=== PATIENT | male | born 1990 | race Caucasian/White ===

== ENCOUNTER 2018-10-09 17:45 | Emergency (ER) | payer OTHER, BC ==
[2018-10-09] MEDS ORDERED: Lidocaine 1% 10 ML MDV INJECT ONE (18:42)
--- NOTE | 2018-10-09 19:17 | EDM.PDOC ---
ED HPI GENERAL MEDICAL PROBLEM - General Chief Complaint: Laceration Stated Complaint: LT KNUCKLE AND RT THUMB LAC Time Seen by Provider: 10/09/18 18:40 Source of Information: Reports: Patient History Limitations: Reports: No Limitations - History of Present Illness INITIAL COMMENTS - FREE TEXT/NARRATIVE: The patient presents with a laceration to his right thumb and left hand. 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 He is right handed. His tetanus is up to date. Onset: Sudden Duration: Hour(s): Location: Reports: Upper Extremity, Left (hand), Upper Extremity, Right (thumb) Quality: Reports: Sharp Severity: Mild Improves with: Reports: None Worsens with: Reports: None Associated Symptoms: Reports: No Other Symptoms Bilateral Hand Pain Score (Numeric/FACES): 2 - Related Data Allergies Allergy/AdvReac Type Severity Reaction Status Date / Time No Known Allergies Allergy Verified 05/17/14 19:03 Home Meds: Home Meds Cephalexin [Keflex] 500 mg PO QID #40 capsule 10/09/18 [Rx] Cephalexin [Keflex] 500 mg PO QID #40 capsule 10/09/18 [Rx] Past Medical History - Past Health History Medical/Surgical History: Denies Medical/Surgical History Social & Family History - Tobacco Use Smoking Status *Q: Current Every Day Smoker Years of Tobacco use: 10 Packs/Tins Daily: 1 - Caffeine Use Caffeine Use: Reports: Energy Drinks, Soda - Recreational Drug Use Recreational Drug Use: No ED ROS GENERAL - Review of Systems Review Of Systems: See Below Constitutional: Reports: No Symptoms HEENT: Reports: No Symptoms Respiratory: Reports: No Symptoms Cardiovascular: Reports: No Symptoms Endocrine: Reports: No Symptoms GI/Abdominal: Reports: No Symptoms : Reports: No Symptoms Musculoskeletal: Reports: Other (laceration to the right thumb and left hand) ED EXAM, SKIN/RASH Exam: See Below Exam Limited By: No Limitations General Appearance: Alert, No Apparent Distress Ears: Normal External Exam Nose: Normal Inspection Head: Atraumatic, Normocephalic Neck: Normal Inspection Respiratory/Chest: No Respiratory Distress Extremities: Other (2cm laceration to the left hand on the volar aspect over the 2nd MCP with 1/4 of the extenser tendon being cut. He has good sensation distally and he has good movement and strength with the 2nd finger. He has a superficial 1.5cm laceration to the pad of the right thumb.) ED SKIN PROCEDURES - Laceration/Wound Repair Left Hand Lac/Wound length In cm: 2 Appearance: Subcutaneous, Linear, Moderately Contaminated Distal NVT: Neuro & Vascular Intact, Other (about 1/4 of the extenser tendon was cut) Anesthetic Type: Local Local Anesthesia - Lidocaine (Xylocaine): 1% Plain Local Anesthetic Volume: 3cc Skin Prep: Saline Exploration/Debridement/Repair: Wound Explored, In a Bloodless Field, Explored to Base, Moderate Debridement, Foreign Material Removed Closed with: Sutures Suture Size: 4-0 # of Sutures: 4 Suture Type: Nylon, Interrupted, Simple Repaired with: Vicryl Suture Size: 4-0 # of Sutures: 1 Repaired with: Vicryl Drain Placement: No Tetanus Status Addressed: Yes Complications: No - Splinting Left Upper Extremity Splint Site: Left hand Pre-Procedure NV Status: Normal Post-Procedure NV Status: Normal Splint Material: Fiberglass Splint Design: Volar Applied & Form Fitted By: Provider Provider Post-Splint Application NV Check: NV Status Normal, Good Position Complications: No Course - Vital Signs Last Recorded V/S: Last Vital Signs Temp 99.3 F 10/09/18 18:02 Pulse 90 10/09/18 18:02 Resp 20 10/09/18 18:02 BP 141/91 H 10/09/18 18:02 Pulse Ox 95 10/09/18 18:02 - Orders/Labs/Meds Orders: Active Orders 24 hr Category Date Time Status Hand Comp Min 3V Lt [CR] Stat Exams 10/09/18 19:07 Taken Meds: Medications Discontinued Medications Generic Name Dose Route Start Last Admin Trade Name Freq PRN Reason Stop Dose Admin Lidocaine HCl 10 ml 10/09/18 18:42 10/09/18 18:52 Xylocaine 1% INJECT 10/09/18 18:43 10 ml ONETIME ONE Administration - Re-Assessments/Exams Free Text/Narrative Re-Assessment/Exam: 10/09/18 19:36 I cleaned the wound and anaesthetized it. I debrided the wound and found an extensor tendon laceration. About 1/4 of the extensor tendon was cut. I called Dr Melendez and he was okay with me putting a suture in it and splinting him and have him follow up next Saturday. He also wanted him on keflex. 10/09/18 19:39 I did an x-ray and there was no rodolfo involvement. Departure - Departure Time of Disposition: 19:45 Disposition: Home, Self-Care 01 Condition: Good Clinical Impression: Hand laceration Qualifiers: Encounter type: initial encounter Foreign body presence: with foreign body Laterality: left Qualified Code(s): S61.422A - Laceration with foreign body of left hand, initial encounter Extensor tendon laceration of hand with open wound Qualifiers: Encounter type: initial encounter Laterality: left Qualified Code(s): S66.822A - Laceration of other specified muscles, fascia and tendons at wrist and hand level, left hand, initial encounter; S61.402A - Unspecified open wound of left hand, initial encounter - Discharge Information *PRESCRIPTION DRUG MONITORING PROGRAM REVIEWED*: No *COPY OF PRESCRIPTION DRUG MONITORING REPORT IN PATIENT ULISES: No Prescriptions: Cephalexin [Keflex] 500 mg PO QID #40 capsule Cephalexin [Keflex] 500 mg PO QID #40 capsule Referrals: PCP,None [Primary Care Provider] - Buck Melendez MD [Physician] - 1 Week Forms: ED Department Discharge, ED Return to Work/School Form Additional Instructions: Leave the splint and dressing on for 24 hours and then take it off 2 times per day and wash the wound in warm soapy water. Put antibiotic ointment after cleaning and then splint your hand again. Take the keflex 4 times per day. Take tylenol or motrin for pain. Call Dr Melendez's office tomorrow and make an appointment for Saturday. Please return if you are worse. - My Orders Last 24 Hours: My Active Orders 10/09/18 19:07 Hand Comp Min 3V Lt [CR] Stat - Assessment/Plan Last 24 Hours: My Active Orders 10/09/18 19:07 Hand Comp Min 3V Lt [CR] Stat ED LACERATION/WOUND PROCEDURES - Laceration/Wound Repair Left Hand Laceration/Wound Length In cm: 1.5 Appearance: Superficial Distal NVT: Neuro & Vascular Intact, No Tendon Injury Skin Prep: Saline Wound Exploration, Debridement, Revision: Wound Explored, In a Bloodless Field, Explored to Base Suture Size: other (adhesive)
--- NOTE | 2018-10-10 07:47 | CR ---
Left hand: Four views of the left hand were obtained. Comparison: No prior left hand exam. Joint spaces are preserved. Bony density compatible with ununited ulnar styloid process is incidentally noted. Several sclerotic lesions are seen within the navicular bone most likely due to incidental bone islands. No acute fracture, dislocation or other bony abnormality is seen. No opaque foreign object is seen. Impression: 1. Incidental findings. Nothing acute is appreciated on left hand exam. Diagnostic code #2
== END 2018-10-09 20:05 | disposition home or self-care (01) ==
LOC: JD.ED 17:45
DX: S66.822A Laceration of other specified muscles, fascia and tendons at wrist and hand level, left hand, initial encounter (principal); F17.210 Nicotine dependence, cigarettes, uncomplicated; W31.89XA Contact with other specified machinery, initial encounter
CPT/HCPCS: 12001; 12031; 12032; 12041; 29125; 73130-26-LT; 73130-LT; 99283; 99284-25

== ENCOUNTER 2020-01-12 12:32 | Day surgery (SDC) | payer BC, OTHER ==
[2020-01-12] MEDS ORDERED: Ondansetron 4 MG/2 ML SDV IVPUSH ONE (13:09)
[2020-01-12] MEDS ORDERED: Sodium Chloride 0.9% 10 ML Syringe FLUSH PRN ×2 (13:10→15:01)
[2020-01-12] MEDS ORDERED: Sodium Chloride 0.9% 1,000 ML IV SCH (13:15)
--- NOTE | 2020-01-12 14:41 | EDM.PDOC ---
ED HPI GENERAL MEDICAL PROBLEM - General Chief Complaint: Abdominal Pain Stated Complaint: R SIDE ABDOMINAL PAIN Time Seen by Provider: 01/12/20 13:45 Source of Information: Reports: Patient, RN Notes Reviewed History Limitations: Reports: No Limitations - History of Present Illness INITIAL COMMENTS - FREE TEXT/NARRATIVE: Patient is a 29-year-old male who presents to the ED for the evaluation of right -sided abdominal pain. Patient notes that this did develop yesterday. This is in his right flank/right lower quadrant, mainly. He states it does worsen with movement, the only thing he is really found that makes it feel better is if he sits in a position or has not a lot of pressure put on that side. He is not having any nausea or diarrhea, but did have 1 emesis today. He is not complaining of any dysuria, urinary frequency or urgency. He is not found to have a fever at time of triage, and is not complaining of this at home as well. Patient states that the pain is a stabbing sharp pain. He has not had any abdominal surgeries prior to this. He did not take any sort of ibuprofen or Tylenol at home. He does not have a regular doctor, he takes no regular medications, and relates no past medical history. He is a smoker, 1 pack/day for the last 10 years. Patient states he has not eaten any solid food since yesterday. Right Abdominal Pain Score (Numeric/FACES): 3 - Related Data Allergies Allergy/AdvReac Type Severity Reaction Status Date / Time No Known Allergies Allergy Verified 01/12/20 12:41 Home Meds: Home Meds . [No Known Home Meds] 01/12/20 [History] Past Medical History - Past Health History Medical/Surgical History: Denies Medical/Surgical History Social & Family History - Tobacco Use Smoking Status *Q: Current Every Day Smoker Years of Tobacco use: 10 Packs/Tins Daily: 1 - Caffeine Use Caffeine Use: Reports: Energy Drinks, Soda ED ROS GENERAL - Review of Systems Review Of Systems: See Below Constitutional: Reports: Decreased Appetite. Denies: Fever, Chills Respiratory: Denies: Shortness of Breath, Cough Cardiovascular: Denies: Chest Pain GI/Abdominal: Reports: Abdominal Pain (RLQ), Decreased Appetite, Vomiting. Denies: Constipation, Diarrhea, Nausea : Denies: Dysuria, Frequency, Hematuria, Urgency Musculoskeletal: Denies: Back Pain ED EXAM, GI/ABD - Physical Exam Exam: See Below Exam Limited By: No Limitations General Appearance: Alert, WD/WN, No Apparent Distress Eyes: Bilateral: Normal Appearance Throat/Mouth: Normal Inspection, Normal Lips, Normal Teeth, Normal Gums, Normal Oropharynx, Normal Voice, No Airway Compromise Head: Atraumatic, Normocephalic Neck: Normal Inspection Respiratory/Chest: No Respiratory Distress, Lungs Clear, Normal Breath Sounds, No Accessory Muscle Use, Chest Non-Tender Cardiovascular: Normal Peripheral Pulses, Regular Rate, Rhythm, No Edema, No Murmur GI/Abdominal Exam: Normal Bowel Sounds, Soft, No Distention, No Mass, Rebound ( RLQ), Tender (RLQ). No: Rigid Extremities: Normal Inspection, Normal Capillary Refill Neurological: Alert, Oriented, Normal Cognition, No Motor/Sensory Deficits Psychiatric: Normal Affect, Normal Mood Skin Exam: Warm, Dry, Intact, Normal Color, No Rash Course - Vital Signs Last Recorded V/S: Last Vital Signs Temp 98.2 F 01/12/20 12:39 Pulse 79 01/12/20 12:39 Resp 16 01/12/20 12:39 BP 141/78 H 01/12/20 12:39 Pulse Ox 98 01/12/20 12:39 - Orders/Labs/Meds Orders: Active Orders 24 hr Category Date Time Status Notify Provider Consults [RC] ASDIRECTED Care 01/12/20 15:52 Ordered Peripheral IV Care [RC] . DIRECTED Care 01/12/20 13:10 Active Consult to Physician [CONS] Stat Cons 01/12/20 15:51 Ordered UA W/MICROSCOPIC [URIN] Stat Lab 01/12/20 13:09 Ordered Sodium Chloride 0.9% [Normal Saline] 1,000 ml Med 01/12/20 13:15 Active IV ASDIRECTED Sodium Chloride 0.9% [Saline Flush] Med 01/12/20 13:10 Active 10 ml FLUSH ASDIRECTED PRN Sodium Chloride 0.9% [Saline Flush] Med 01/12/20 15:01 Active 10 ml FLUSH ONETIME PRN Peripheral IV Insertion Adult [OM.PC] Stat Oth 01/12/20 13:10 Ordered Medication Orders Sodium Chloride (Normal Saline) 1,000 mls @ 999 mls/hr IV ASDIRECTED NEELIMA Last Admin: 01/12/20 13:26 Dose: 999 mls/hr Sodium Chloride (Saline Flush) 10 ml FLUSH ASDIRECTED PRN PRN Reason: Keep Vein Open Last Admin: 01/12/20 13:25 Dose: 10 ml Sodium Chloride (Saline Flush) 10 ml FLUSH ONETIME PRN PRN Reason: Keep Vein Open Last Admin: 01/12/20 15:21 Dose: 10 ml Labs: Laboratory Tests 01/12/20 01/12/20 Range/Units 13:25 13:25 WBC 10.86 H (4.23-9.07) K/mm3 RBC 5.61 (4.63-6.08) M/mm3 Hgb 17.1 (13.7-17.5) gm/dl Hct 49.8 (40.1-51.0) % MCV 88.8 (79.0-92.2) fl MCH 30.5 (25.7-32.2) pg MCHC 34.3 (32.2-35.5) g/dl RDW Std Deviation 44.0 H (35.1-43.9) fL Plt Count 199 (163-337) K/mm3 MPV 10.8 (9.4-12.3) fl Neutrophils % (Manual) 73 H (40-60) % Band Neutrophils % 0 (0-10) % Lymphocytes % (Manual) 19 L (20-40) % Atypical Lymphs % 0 % Monocytes % (Manual) 7 (2-10) % Eosinophils % (Manual) 1 (0.8-7.0) % Basophils % (Manual) 0 L (0.2-1.2) Platelet Estimate Adequate RBC Morph Comment Normal Sodium 141 (136-145) mEq/L Potassium 4.0 (3.5-5.1) mEq/L Chloride 104 (98-107) mEq/L Carbon Dioxide 27 (21-32) mEq/L Anion Gap 14.0 (5-15) BUN 16 (7-18) mg/dL Creatinine 1.1 (0.7-1.3) mg/dL Est Cr Clr Drug Dosing 102.31 mL/min Estimated GFR (MDRD) > 60 (>60) mL/min BUN/Creatinine Ratio 14.5 (14-18) Glucose 91 (74-106) mg/dL Calcium 9.6 (8.5-10.1) mg/dL Total Bilirubin 0.7 (0.2-1.0) mg/dL AST 11 L (15-37) U/L ALT 24 (16-63) U/L Alkaline Phosphatase 87 (46-116) U/L C-Reactive Protein 9.8 H* (<1.0) mg/dL Total Protein 8.0 (6.4-8.2) g/dl Albumin 4.2 (3.4-5.0) g/dl Globulin 3.8 gm/dL Albumin/Globulin Ratio 1.1 (1-2) Meds: Medications Generic Name Dose Route Start Last Admin Trade Name Freq PRN Reason Stop Dose Admin Sodium Chloride 1,000 mls @ 999 mls/hr 01/12/20 13:15 01/12/20 13:26 Normal Saline IV 999 mls/hr ASDIRECTED NEELIMA Administration Sodium Chloride 10 ml 01/12/20 13:10 01/12/20 13:25 Saline Flush FLUSH 10 ml ASDIRECTED PRN Administration Keep Vein Open Sodium Chloride 10 ml 01/12/20 15:01 01/12/20 15:21 Saline Flush FLUSH 10 ml ONETIME PRN Administration Keep Vein Open Discontinued Medications Generic Name Dose Route Start Last Admin Trade Name Freq PRN Reason Stop Dose Admin Diatrizoate Meglum/Diatrizoate Sod 60 ml 01/12/20 15:01 01/12/20 15:20 Gastrografin 37% PO 01/12/20 15:02 60 ml ONETIME ONE Administration Iopamidol 100 ml 01/12/20 15:01 01/12/20 15:20 Isovue-300 (61%) IVPUSH 01/12/20 15:02 100 ml ONETIME ONE Administration Ondansetron HCl 4 mg 01/12/20 13:09 01/12/20 13:25 Zofran IVPUSH 01/12/20 13:10 4 mg ONETIME ONE Administration - Re-Assessments/Exams Free Text/Narrative Re-Assessment/Exam: 01/12/20 14:42 Patient presents to the ED for his right lower abdominal pain. I did order some labs to include CBC, CMP, CRP, urinalysis, also 4 mg Zofran with an abdomen pelvis CT with oral and IV contrast for further evaluation. Patient's white blood cell count is mildly elevated at 10.86, 73% neutrophils no bands. Metabolic panel is essentially within normal limits, CRP is elevated at 9.8 today. Departure - Departure Time of Disposition: 15:55 Disposition: DC/Tfer to Acute Hospital 02 Condition: Fair Clinical Impression: Appendicitis Qualifiers: Appendicitis type: acute appendicitis Acute appendicitis type: with localized peritonitis Appendicitis gangrene presence: without gangrene Appendicitis perforation presence: without perforation Appendicitis abscess presence: without abscess Qualified Code(s): K35.30 - Acute appendicitis with localized peritonitis, without perforation or gangrene - Discharge Information *PRESCRIPTION DRUG MONITORING PROGRAM REVIEWED*: No *COPY OF PRESCRIPTION DRUG MONITORING REPORT IN PATIENT ULISES: No Referrals: PCP,None [Primary Care Provider] - Forms: ED Department Discharge Sepsis Event Note - Evaluation Sepsis Screening Result: No Definite Risk - Focused Exam Vital Signs: Vital Signs Temp Pulse Resp BP Pulse Ox 01/12/20 12:39 98.2 F 79 16 141/78 H 98 Date Exam was Performed: 01/12/20 Time Exam was Performed: 15:55 - My Orders Last 24 Hours: My Active Orders 01/12/20 13:09 UA W/MICROSCOPIC [URIN] Stat 01/12/20 13:10 Peripheral IV Care [RC] . DIRECTED Sodium Chloride 0.9% [Saline Flush] 10 ml FLUSH ASDIRECTED PRN Peripheral IV Insertion Adult [OM.PC] Stat 01/12/20 13:15 Sodium Chloride 0.9% [Normal Saline] 1,000 ml IV ASDIRECTED 01/12/20 15:01 Sodium Chloride 0.9% [Saline Flush] 10 ml FLUSH ONETIME PRN 01/12/20 15:51 Consult to Physician [CONS] Stat 01/12/20 15:52 Notify Provider Consults [RC] ASDIRECTED - Assessment/Plan Last 24 Hours: My Active Orders 01/12/20 13:09 UA W/MICROSCOPIC [URIN] Stat 01/12/20 13:10 Peripheral IV Care [RC] . DIRECTED Sodium Chloride 0.9% [Saline Flush] 10 ml FLUSH ASDIRECTED PRN Peripheral IV Insertion Adult [OM.PC] Stat 01/12/20 13:15 Sodium Chloride 0.9% [Normal Saline] 1,000 ml IV ASDIRECTED 01/12/20 15:01 Sodium Chloride 0.9% [Saline Flush] 10 ml FLUSH ONETIME PRN 01/12/20 15:51 Consult to Physician [CONS] Stat 01/12/20 15:52 Notify Provider Consults [RC] ASDIRECTED
[2020-01-12] MEDS ORDERED: Diatrizoate Meglumine/Diatrizoate Sodium 37% 120 ML Bottle PO ONE (15:01)
[2020-01-12] MEDS ORDERED: Iopamidol 612 MG/ML 100 ML Bottle IVPUSH ONE (15:01)
--- NOTE | 2020-01-12 15:48 | CT ---
CT abdomen and pelvis Technique: Multiple axial sections were obtained from above the dome of the diaphragm inferiorly through the pubic symphysis. Intravenous contrast and oral contrast was utilized. Findings: Appendix is dilated and shows surrounding inflammatory change. Findings 7th are compatible with appendicitis. Visualized lung bases shows minimal atelectasis. Liver shows no focal abnormality. Spleen shows no focal abnormality. Adrenal glands show no nodule. Pancreas shows no focal abnormality. Aorta shows no aneurysm. Kidneys show symmetric contrast enhancement without hydronephrosis or mass. No mesenteric abnormalities are seen. No pelvic mass or other abnormality is seen. Bone window settings were reviewed which shows no acute osseous finding. Impression: 1. Dilated appendix with surrounding inflammatory change compatible with appendicitis. 2. Mild bibasilar atelectasis within both lung bases. 3. No additional abnormality is seen. Diagnostic code #5 This report was dictated in [place] Standard Time
[2020-01-12] MEDS ORDERED: cefOXitin 1 GM in Premix Bag 1 BAG IV ONE ×2 (16:27→16:57)
[2020-01-12] MEDS ORDERED: Bupivacaine 0.5%/EPINEPHrine 1:200,000 50 ML MDV ONE (16:28)
--- NOTE | 2020-01-12 16:35 | PCM.HP.2 ---
H&P History of Present Illness - General Date of Service: 01/12/20 Source of Information: Patient History Limitations: Reports: No Limitations - History of Present Illness Duration of Symptoms: Reports: Day(s):, Getting Worse Location: Reports: Abdomen Severity: Severe Associated Symptoms: Reports: Nausea/Vomiting Other HPI/Comments: Mr. Kilpatrick is a 29 yo man without medical problems who presents with about 24 hours of abdominal pain. He has not had pain like this before. The pain is localized in the right lower quadrant and has been getting worse. He has associated nausea and vomiting. CT scan shows evidence of acute appendicitis. Right Abdominal Pain Score (Numeric/FACES): 3 - Related Data Allergies/Adverse Reactions: Allergies Allergy/AdvReac Type Severity Reaction Status Date / Time No Known Allergies Allergy Verified 01/12/20 12:41 Home Medications: Home Meds . [No Known Home Meds] 01/12/20 [History] Past Medical History - Past Health History Medical/Surgical History: Denies Medical/Surgical History Social & Family History - Tobacco Use Smoking Status *Q: Current Every Day Smoker Years of Tobacco use: 10 Packs/Tins Daily: 1 - Caffeine Use Caffeine Use: Reports: Energy Drinks, Soda H&P Review of Systems - Review of Systems: Review Of Systems: See Below General: Reports: No Symptoms HEENT: Reports: No Symptoms Pulmonary: Reports: No Symptoms Cardiovascular: Reports: No Symptoms Gastrointestinal: Reports: Abdominal Pain, Anorexia, Nausea, Vomiting Genitourinary: Reports: No Symptoms Musculoskeletal: Reports: No Symptoms Skin: Reports: No Symptoms Psychiatric: Reports: No Symptoms Neurological: Reports: No Symptoms Hematologic/Lymphatic: Reports: No Symptoms Immunologic: Reports: No Symptoms Exam - Exam Exam: See Below - Vital Signs Vital Signs: Last Vital Signs Temp 36.8 C 01/12/20 12:39 Pulse 79 01/12/20 12:39 Resp 16 01/12/20 12:39 BP 141/78 H 01/12/20 12:39 Pulse Ox 98 01/12/20 12:39 Weight: 86.183 kg - Exam General: Alert, Oriented, Cooperative HEENT: Conjunctiva Clear Neck: Supple Lungs: Clear to Auscultation Cardiovascular: Regular Rate GI/Abdominal Exam: Other (focal tenderness at McBurney point. No peritonitis or palpable mass. ) Extremities: Normal Inspection Skin: Warm, Dry, Intact Neuro Extensive - Mental Status: Alert, Oriented x3 Psychiatric: Normal Affect - Patient Data Lab Results Last 24 hrs: Laboratory Results - last 24 hr 01/12/20 01/12/20 Range/Units 13:25 13:25 WBC 10.86 H (4.23-9.07) K/mm3 RBC 5.61 (4.63-6.08) M/mm3 Hgb 17.1 (13.7-17.5) gm/dl Hct 49.8 (40.1-51.0) % MCV 88.8 (79.0-92.2) fl MCH 30.5 (25.7-32.2) pg MCHC 34.3 (32.2-35.5) g/dl RDW Std Deviation 44.0 H (35.1-43.9) fL Plt Count 199 (163-337) K/mm3 MPV 10.8 (9.4-12.3) fl Neutrophils % (Manual) 73 H (40-60) % Band Neutrophils % 0 (0-10) % Lymphocytes % (Manual) 19 L (20-40) % Atypical Lymphs % 0 % Monocytes % (Manual) 7 (2-10) % Eosinophils % (Manual) 1 (0.8-7.0) % Basophils % (Manual) 0 L (0.2-1.2) Platelet Estimate Adequate RBC Morph Comment Normal Sodium 141 (136-145) mEq/L Potassium 4.0 (3.5-5.1) mEq/L Chloride 104 (98-107) mEq/L Carbon Dioxide 27 (21-32) mEq/L Anion Gap 14.0 (5-15) BUN 16 (7-18) mg/dL Creatinine 1.1 (0.7-1.3) mg/dL Est Cr Clr Drug Dosing 102.31 mL/min Estimated GFR (MDRD) > 60 (>60) mL/min BUN/Creatinine Ratio 14.5 (14-18) Glucose 91 (74-106) mg/dL Calcium 9.6 (8.5-10.1) mg/dL Total Bilirubin 0.7 (0.2-1.0) mg/dL AST 11 L (15-37) U/L ALT 24 (16-63) U/L Alkaline Phosphatase 87 (46-116) U/L C-Reactive Protein 9.8 H* (<1.0) mg/dL Total Protein 8.0 (6.4-8.2) g/dl Albumin 4.2 (3.4-5.0) g/dl Globulin 3.8 gm/dL Albumin/Globulin Ratio 1.1 (1-2) Result Diagrams: 01/12/20 13:25 01/12/20 13:25 Sepsis Event Note - Evaluation Sepsis Screening Result: No Definite Risk - Focused Exam Vital Signs: Vital Signs Temp Pulse Resp BP Pulse Ox 01/12/20 12:39 36.8 C 79 16 141/78 H 98 Date Exam was Performed: 01/12/20 Time Exam was Performed: 16:32 *Q Meaningful Use (ADM) - VTE Risk Assess *Q Each Risk Factor Represents 1 Point: Minor Surgery Planned Total Score 1 Point Risk Factors: 1 Problem List Initiated/Reviewed/Updated: Yes Orders Last 24hrs: Active Orders 24 hr Category Date Time Status Notify Provider Consults [RC] ASDIRECTED Care 01/12/20 15:52 Active Peripheral IV Care [RC] . DIRECTED Care 01/12/20 13:10 Active Consult to Physician [CONS] Stat Cons 01/12/20 15:51 Active UA W/MICROSCOPIC [URIN] Stat Lab 01/12/20 13:09 Ordered Sodium Chloride 0.9% [Normal Saline] 1,000 ml Med 01/12/20 13:15 Active IV ASDIRECTED Sodium Chloride 0.9% [Saline Flush] Med 01/12/20 13:10 Active 10 ml FLUSH ASDIRECTED PRN Sodium Chloride 0.9% [Saline Flush] Med 01/12/20 15:01 Active 10 ml FLUSH ONETIME PRN cefOXitin [Mefoxin in Dextrose,Iso-Osm 1 GM/50 ML] 1 gm Med 01/12/20 16:27 Ordered Premix Bag 1 bag IV ONETIME Peripheral IV Insertion Adult [OM.PC] Stat Oth 01/12/20 13:10 Ordered Schedule Procedure [COMM] Routine Oth 01/12/20 16:27 Ordered Medication Orders Sodium Chloride (Normal Saline) 1,000 mls @ 999 mls/hr IV ASDIRECTED NEELIMA Last Admin: 01/12/20 13:26 Dose: 999 mls/hr Cefoxitin Sodium 1 gm/ Premix 50 mls @ 100 mls/hr IV ONETIME ONE Stop: 01/12/20 16:56 Sodium Chloride (Saline Flush) 10 ml FLUSH ASDIRECTED PRN PRN Reason: Keep Vein Open Last Admin: 01/12/20 13:25 Dose: 10 ml Sodium Chloride (Saline Flush) 10 ml FLUSH ONETIME PRN PRN Reason: Keep Vein Open Last Admin: 01/12/20 15:21 Dose: 10 ml Assessment/Plan Comment:: acute appendicitis. Plan for laparoscopic appendectomy. - Mortality Measure Prognosis:: Good
--- NOTE | 2020-01-12 16:38 | PCM.PREANE ---
Preanesthetic Assessment - Anesthesia/Transfusion/Family Hx Anesthesia History: Prior Anesthesia Without Reaction Transfusion History: No Prior Transfusion(s) - Review of Systems General: No Symptoms Pulmonary: No Symptoms Cardiovascular: No Symptoms Gastrointestinal: No Symptoms Neurological: No Symptoms Other: Reports: None - Physical Assessment NPO Status Date: 01/12/20 NPO Status Time: 07:00 Vital Signs: Last Vital Signs Temp 98.2 F 01/12/20 12:39 Pulse 79 01/12/20 12:39 Resp 16 01/12/20 12:39 BP 141/78 H 01/12/20 12:39 Pulse Ox 98 01/12/20 12:39 Height: 1.78 m Weight: 86.183 kg ASA Class: 2E Mental Status: Alert & Oriented x3 Airway Class: Mallampati = 3 Dentition: Reports: Normal Dentition Thyro-Mental Finger Breadths: 3 Mouth Opening Finger Breadths: 3 ROM/Head Extension: Full Lungs: Clear to Auscultation, Normal Respiratory Effort Cardiovascular: Regular Rate, Regular Rhythm - Lab Values: Laboratory Last Values WBC 10.86 K/mm3 (4.23-9.07) H 01/12/20 13:25 RBC 5.61 M/mm3 (4.63-6.08) 01/12/20 13:25 Hgb 17.1 gm/dl (13.7-17.5) 01/12/20 13:25 Hct 49.8 % (40.1-51.0) 01/12/20 13:25 MCV 88.8 fl (79.0-92.2) 01/12/20 13:25 MCH 30.5 pg (25.7-32.2) 01/12/20 13:25 MCHC 34.3 g/dl (32.2-35.5) 01/12/20 13:25 RDW Std Deviation 44.0 fL (35.1-43.9) H 01/12/20 13:25 Plt Count 199 K/mm3 (163-337) 01/12/20 13:25 MPV 10.8 fl (9.4-12.3) 01/12/20 13:25 Neutrophils % (Manual) 73 % (40-60) H 01/12/20 13:25 Band Neutrophils % 0 % (0-10) 01/12/20 13:25 Lymphocytes % (Manual) 19 % (20-40) L 01/12/20 13:25 Atypical Lymphs % 0 % 01/12/20 13:25 Monocytes % (Manual) 7 % (2-10) 01/12/20 13:25 Eosinophils % (Manual) 1 % (0.8-7.0) 01/12/20 13:25 Basophils % (Manual) 0 (0.2-1.2) L 01/12/20 13:25 Platelet Estimate Adequate 01/12/20 13:25 RBC Morph Comment Normal 01/12/20 13:25 Sodium 141 mEq/L (136-145) 01/12/20 13:25 Potassium 4.0 mEq/L (3.5-5.1) 01/12/20 13:25 Chloride 104 mEq/L (98-107) 01/12/20 13:25 Carbon Dioxide 27 mEq/L (21-32) 01/12/20 13:25 Anion Gap 14.0 (5-15) 01/12/20 13:25 BUN 16 mg/dL (7-18) 01/12/20 13:25 Creatinine 1.1 mg/dL (0.7-1.3) 01/12/20 13:25 Est Cr Clr Drug Dosing 102.31 mL/min 01/12/20 13:25 Estimated GFR (MDRD) > 60 mL/min (>60) 01/12/20 13:25 BUN/Creatinine Ratio 14.5 (14-18) 01/12/20 13:25 Glucose 91 mg/dL (74-106) 01/12/20 13:25 Calcium 9.6 mg/dL (8.5-10.1) 01/12/20 13:25 Total Bilirubin 0.7 mg/dL (0.2-1.0) 01/12/20 13:25 AST 11 U/L (15-37) L 01/12/20 13:25 ALT 24 U/L (16-63) 01/12/20 13:25 Alkaline Phosphatase 87 U/L (46-116) 01/12/20 13:25 C-Reactive Protein 9.8 mg/dL (<1.0) H* 01/12/20 13:25 Total Protein 8.0 g/dl (6.4-8.2) 01/12/20 13:25 Albumin 4.2 g/dl (3.4-5.0) 01/12/20 13:25 Globulin 3.8 gm/dL 01/12/20 13:25 Albumin/Globulin Ratio 1.1 (1-2) 01/12/20 13:25 - Allergies Allergies/Adverse Reactions: Allergies Allergy/AdvReac Type Severity Reaction Status Date / Time No Known Allergies Allergy Verified 01/12/20 12:41 - Acknowledgements Anesthesia Type Planned: General Anesthesia Pt an Appropriate Candidate for the Planned Anesthesia: Yes Alternatives and Risks of Anesthesia Discussed w Pt/Guardian: Yes Pt/Guardian Understands and Agrees with Anesthesia Plan: Yes PreAnesthesia Questionnaire - Past Health History Medical/Surgical History: Denies Medical/Surgical History - SUBSTANCE USE Smoking Status *Q: Current Every Day Smoker Tobacco Use Within Last Twelve Months: Cigarettes - HOME MEDS Home Medications: Home Meds . [No Known Home Meds] 01/12/20 [History] - CURRENT (IN HOUSE) MEDS Current Meds: Current Medications Sodium Chloride (Normal Saline) 1,000 mls @ 999 mls/hr IV ASDIRECTED NEELIMA Last Admin: 01/12/20 13:26 Dose: 999 mls/hr Cefoxitin Sodium 1 gm/ Premix 50 mls @ 100 mls/hr IV ONETIME ONE Stop: 01/12/20 16:56 Sodium Chloride (Saline Flush) 10 ml FLUSH ASDIRECTED PRN PRN Reason: Keep Vein Open Last Admin: 01/12/20 13:25 Dose: 10 ml Sodium Chloride (Saline Flush) 10 ml FLUSH ONETIME PRN PRN Reason: Keep Vein Open Last Admin: 01/12/20 15:21 Dose: 10 ml Discontinued Medications Diatrizoate Meglum/Diatrizoate Sod (Gastrografin 37%) 60 ml PO ONETIME ONE Stop: 01/12/20 15:02 Last Admin: 01/12/20 15:20 Dose: 60 ml Iopamidol (Isovue-300 (61%)) 100 ml IVPUSH ONETIME ONE Stop: 01/12/20 15:02 Last Admin: 01/12/20 15:20 Dose: 100 ml Ondansetron HCl (Zofran) 4 mg IVPUSH ONETIME ONE Stop: 01/12/20 13:10 Last Admin: 01/12/20 13:25 Dose: 4 mg
[2020-01-12] MEDS ORDERED: Rocuronium 50 MG/5 ML Vial ONE (16:46)
[2020-01-12] MEDS ORDERED: Propofol 200 MG/20 ML SDV ONE (16:46)
[2020-01-12] MEDS ORDERED: Midazolam 1 MG/ML 2 ML SDV ONE (16:46)
[2020-01-12] MEDS ORDERED: Lidocaine 1% 6 ML ONE (16:47)
[2020-01-12] MEDS ORDERED: fentaNYL 250 MCG/5 ML SDV ONE (16:47)
[2020-01-12] MEDS ORDERED: Succinylcholine/Sod PF 100 MG/5 ML SYRINGE IV ONE (16:50)
[2020-01-12] MEDS ORDERED: Ondansetron 4 MG/2 ML SDV ONE (17:21)
[2020-01-12] MEDS ORDERED: HYDROmorphone 0.5 MG/0.5 ML Syringe IVPUSH PRN (17:58)
[2020-01-12] MEDS ORDERED: fentaNYL 100 MCG/2 ML SDV IVPUSH PRN (17:58)
[2020-01-12] MEDS ORDERED: HYDROmorphone 0.5 MG/0.5 ML Syringe ONE (18:09)
--- NOTE | 2020-01-12 18:33 | PCM.PRNOTE ---
- Free Text/Narrative Note: Operative Report Operation: laparoscopic appendectomy Date: 01/12/2020 Attending Surgeon: Juna Duarte MD Indication for Surgery: acute appendicitis Preoperative antibiotics: 1 g cefoxitin IV VTE prophylaxis: SCDs Estimated Blood Loss: 10 cc Findings: retrocecal appendix requiring medial reflection of the ascending colon. Perforation of mid-body of appendix during handling with small amount of white purulent fluid expelled. Detailed Report: The patient underwent general endotracheal anesthesia after being placed supine on the operating table and initial timeout. The left arm was tucked at the patients side. The abdomen was prepped and draped in sterile fashion. A pre- incision timeout was performed confirming the patients identity and the operation to be performed. A Veress needle was inserted into the abdominal cavity below the left costal margin along the mid-clavicular line. The abdomen was insufflated with CO2 to 15 mm Hg. Gas was aspirated below the umbilicus with a syringe in order to ensure safe placement of a 12 mm bladed laparoscopic port. The 5mm 30 degree laparoscope was then inserted and viscera inspected. The appendix was not readily apparent. Two additional 5 mm ports were placed under direct vision with the laparoscope one along the midline superior to the pubic symphysis and one in the left lower quadrant. The laparoscope was then placed through the left lower quadrant port for optimal visualization. There was no inflammatory change noted around the base of the cecum, and the terminal ileum was well visualized as it met the cecum. The appendix did appear retrocecal on pre-operative imaging. The cecum was retracted toward the midline and lateral ligamentous attachments of the colon were dissected in order to roll the colon medially of the retroperitoneum. The taenia were traced down to a retrocecal appendix with dense inflammatory attachments. The appendix was inflamed. Careful dissection proceeded, shelling out the appendix from surrounding attachments. Eventually the appendix was completely unfolded and able to be placed on tension as it was retracted toward the patient's feet within the peritoneal cavity. The [place] Ligasure wwas used to take the mesoappendix working from the appendiceal tip towards its origin at the base of the cecum. The distal portion of the appendix was grasped with a laparoscopic [place] clamp and retracted anteriorly and inferiorly. The [place] Ligasure was used to create a window in the mesoappendix where the appendix was seen coming off the cecum. During handling, a small perforation of the mid-portion of the appendix occurred and there was some drainage of pus. This was small in amount and easily contained with the suction irrigation device. A 45 mm laparoscopic stapler with white cartridge was used to divide the appendix flush with the base of the cecum. The specimen was then placed in an Endocatch bag and removed through the umbilical port. The dissection field was irrigated thoroughly and inspected and appeared hemostatic. Omentum was tucked in over the dissection field. The larger infraumbilical port was closed at the level of the fascia with vicryl suture using the PMI laparoscopic suture passer. Pneumoperitoneum was then released. All skin incisions were then closed with placement of subcuticular vicryl suture and dressed with dermabond. A total of 20 cc 0.5 % marcaine with epinephrine was used for local anesthesia at the incision sites. The patient tolerated the operation well, was extubated in the operating room and transferred to the PACU for routine post-anesthesia care. Juan Duarte MD General Surgery
--- NOTE | 2020-01-12 18:45 | PCM.POSTAN ---
POST ANESTHESIA ASSESSMENT - MENTAL STATUS Mental Status: Alert, Oriented - VITAL SIGNS Vital Signs: Last Vital Signs Temp 99.1 F 01/12/20 18:42 Pulse 79 01/12/20 12:39 Resp 17 01/12/20 18:42 BP 146/89 H 01/12/20 18:42 Pulse Ox 99 01/12/20 18:42 - RESPIRATORY Respiratory Status: Respiratory Rate WNL, Airway Patent, O2 Saturation Stable, Supplemental Oxygen - CARDIOVASCULAR CV Status: Pulse Rate WNL, Blood Pressure Stable - GASTROINTESTINAL GI Status: No Symptoms - PAIN Pain Score: 0 - POST OP HYDRATION Hydration Status: Adequate & Stable
--- NOTE | 2020-01-12 18:56 | PCM48HPAN ---
Post Anesthesia Note - EVALUATION WITHIN 48HRS OF ANESTHETIC Vital Signs in Normal Range: Yes Patient Participated in Evaluation: Yes Respiratory Function Stable: Yes Airway Patent: Yes Cardiovascular Function Stable: Yes Hydration Status Stable: Yes Pain Control Satisfactory: Yes Nausea and Vomiting Control Satisfactory: Yes Mental Status Recovered: Yes Vital Signs: Last Vital Signs Temp 210.4 F H 01/12/20 18:54 Pulse 79 01/12/20 12:39 Resp 18 01/12/20 18:54 BP 135/87 01/12/20 18:54 Pulse Ox 99 01/12/20 18:54
== END 2020-01-12 19:40 | disposition home or self-care (01) ==
LOC: JD.ED 12:32 → JD.SDS 16:25
PROVIDERS: ATTEND Surgery
DX: K35.33 Acute appendicitis with perforation, localized peritonitis, and gangrene, with abscess (principal); F17.210 Nicotine dependence, cigarettes, uncomplicated
CPT/HCPCS: 36415; 44970; 74177; 80053; 81001; 85007; 85027; 86140; 96361; 96374; 99285; J0330; J0694; J1170; J2001; J2250; J2405; J2704; J2710; J3010; J3490; J7030; Q9963; Q9967; 00840; 99284